=== PATIENT | male | born 1950 | race Caucasian/White ===

== ENCOUNTER 2019-03-26 08:55 | Day surgery (SDC) | payer MEDICARE, OTHER ==
--- NOTE | 2019-03-27 15:36 | OR ---
[facility] [address], [place] [address] Signed DATE OF OPERATION: 03/26/2019 SURGEON: Carrie Benjamin MD PREOPERATIVE DIAGNOSES: 1. Right thyroid mass. 2. Cystic solid lesion. POSTOPERATIVE DIAGNOSES: 1. Right thyroid mass. 2. Cystic solid lesion. PROCEDURES PERFORMED: 1. Ultrasound evaluation of thyroid. 2. Ultrasound-guided fine-needle aspiration biopsy of right thyroid lobe mass. ANESTHESIA: 1% lidocaine with epinephrine. INDICATION: This 69-year-old white man is a patient of Dr. Darwin Looney and has had issues of prostate cancer as well as renal cell carcinoma of the right kidney undergoing a partial nephrectomy. He is considered to have possible bony metastases, but this is not entirely certain. During the course of a PET scan, he was noted to have a right thyroid mass. He has no exposure of radiation therapy and no family history of thyroid cancer. The lesion was noted on CT scan and affirmed by PET scan to be approximately 2-point cm in size and clinically nonpalpable. I have recommended fine-needle aspiration biopsy by ultrasound guidance to better characterize the histology of the lesion. The risks of bleeding, infection, failure of diagnosis, misdiagnosis, and other unforeseen complications were reviewed in detail with him. He understands and wished to proceed. FINDINGS: Ultrasonographic evaluation of the thyroid showed a mixed cystic solid lesion of the right thyroid lobe in the lower aspect. The isthmus and left lobe were normal. Needle aspiration was undertaken with ultrasound guidance with certainty of the lesion having been interrogated. On the 3rd specimen, fluid was obtained as well consistent with thyroid cyst fluid. DESCRIPTION OF PROCEDURE: The patient was placed in a supine position on a stretcher in the Day Surgery area with Electronically Signed By: CARRIE BENJAMIN MD 03/27/19 1536 PATIENT NAME: YASIR GUILLEN OPERATIVE REPORT DATE OF : 52 REPORT #: [id number] PHYSICIAN: CARRIE BENJAMIN MD PCP: DARWIN LOONEY MD REPORT IS CONFIDENTIAL AND NOT TO BE RELEASED WITHOUT AUTHORIZATION [facility] [address], [place] [address] Signed the neck extended. Gel was applied to the anterior neck, and using a SonoSite ultrasound, interrogation of the neck structure was undertaken showing a relatively large 3 cm lesion of the right thyroid lobe with both mixed and solid components. Scanning across the isthmus showed it to be normal and the left lobe was normal in size and appearance. The neck was then prepared with a chlorhexidine solution and the area was draped sterilely. The ultrasound probe was placed in a sterile cover with gel within the cover itself. Re-evaluation of the thyroid was undertaken. 1% lidocaine was injected in the lateral aspect of the probe and in the central portion. Using a 22-gauge needle with 10 mL syringe and aspiration mode with a control syringe, the needle was guided to the right thyroid lobe lesion avoiding obviously the internal jugular vein and carotid artery, which were well visualized. Multiple passes were taken in the nodule. The resulting aspirate was offloaded into a sterile container and two additional similar such interrogations of the lesion in question were undertaken. The 3rd was in the midportion of the probe in AP direction, which obtained some fluid as well. Re-examination with the ultrasound showed no sign of hematoma, bleeding, or other abnormality. A Band-Aid was applied. He tolerated the procedure well. MD MARIANNA Novak/MODL /[id number] cc: Darwin Looney MD Copies: ~ Electronically Signed By: CARRIE BENJAMIN MD 03/27/19 1536 PATIENT NAME: YASIR GUILLEN OPERATIVE REPORT DATE OF : 52 REPORT #: [id number] PHYSICIAN: CARRIE BENJAMIN MD PCP: DARWIN LOONEY MD REPORT IS CONFIDENTIAL AND NOT TO BE RELEASED WITHOUT AUTHORIZATION
== END 2019-03-26 18:00 | disposition home or self-care (01) ==
LOC: DS 08:55 → OPS 08:55 → DS 09:00 → OPS 09:00
PROC: 0GBH3ZX Excision of Right Thyroid Gland Lobe, Percutaneous Approach, Diagnostic (ICD-10-PCS; principal; 2019-03-26)
DX: E04.1 Nontoxic single thyroid nodule (principal); E66.3 Overweight; E07.89 Other specified disorders of thyroid; C79.51 Secondary malignant neoplasm of bone; C79.00 Secondary malignant neoplasm of unspecified kidney and renal pelvis; Z85.46 Personal history of malignant neoplasm of prostate; Z85.528 Personal history of other malignant neoplasm of kidney; Z68.29 Body mass index [BMI] 29.0-29.9, adult
CPT/HCPCS: 88173; 88305

== ENCOUNTER 2020-10-31 07:21 | Day surgery (SDC) | payer BC, MEDICARE ==
[~2020-10-31] VITALS: Ht 170.2 cm; Wt 81.8 kg
--- NOTE | ~2020-10-31 | OR ---
[facility] [address], [place] [address] Draft DATE OF OPERATION: 10/31/2020 SURGEON: Carrie Benjamin MD PREOPERATIVE DIAGNOSIS: Colon screening. POSTOPERATIVE DIAGNOSIS: Multiple polyps (nine). PROCEDURE: Total colonoscopy to cecum with cold morcellation polypectomy x5 and hot snare polypectomy x4. ANESTHESIA: Intravenous sedation, fentanyl 100 mcg and Versed 8 mg. INDICATIONS: This 70-year-old white man is well known to me from the past. He is a patient of Dr. Almonte. He has had a partial nephrectomy for malignancy in the past and ongoing evaluation for recurrent nodule, which was proven to be negative on biopsy by Dr. Lema. The patient has an incisional hernia in the epigastric incision from prior Hill repair as well as the right flank hernia from recent additional biopsy of the right kidney. He underwent colonoscopy by me in 2008. At that time, he had a hyperplastic polyp. He is having no symptoms of bleeding, diarrhea, or constipation. He does have a fair amount of "gas" as well as tenesmus type sensation. He is admitted to undergo colonoscopy. He understands the risks of bleeding, infection, and perforation. FINDINGS: The prep was excellent. Complete colonoscopy was undertaken of the cecum without question. He had multiple polyps, nine in total. They were at 70 cm, 60 cm, 50 cm, 15 cm, two at 20 cm, one at 18 cm and another at 65 cm and another at 35 cm. All were excised completely. DESCRIPTION OF PROCEDURE: The patient was brought to the endoscopy suite and placed in lateral decubitus position given intravenous sedation to the point of slurred speech and nystagmus. Digital rectal examination was normal. PATIENT NAME: YASIR GUILLEN OPERATIVE REPORT DATE OF : 52 REPORT #: [id number] PHYSICIAN: CARRIE BENJAMIN MD PCP: KYLE ALMONTE MD REPORT IS CONFIDENTIAL AND NOT TO BE RELEASED WITHOUT AUTHORIZATION [facility] [address], [place] [address] Draft An Olympus video colonoscope was passed into the rectum and manipulated throughout the colon noting a relatively large pedunculated polyp in the sigmoid colon. Mindful that this would be easily defined upon withdrawal of scope. The scope was passed forward ultimately to the cecum. Ileocecal valve and appendiceal orifice were normal. The scope was withdrawn from that point. Careful inspection upon withdrawal of scope showed no sign of abnormality until approximately 70 cm from the anal verge at the splenic flexure, where a small polyp was noted, this was excised with cold morcellation technique. The scope was further withdrawn. Another polyp was noted at 65 cm, this excised with hot snare polypectomy technique. Another at 60 cm similarly excised. Further withdrawal of scope showed a polyp at 35 cm, which was excised with cold morcellation technique. Another at 18 cm similarly excised and the largest polyp at approximately 20 cm, which was excised with hot snare polypectomy technique. Another polyp at 15 cm excised with snare technique as well. In aggregate, five polyps were excised with cold morcellation technique and four with hot snare technique. All were retrieved for pathology, two required a basket to remove. Retroflexed view of the rectum was normal. The scope was removed, and the patient was taken to the recovery room in good condition. CONCLUDING DIAGNOSIS: Multiple polyps, all have been left-sided. PLAN: Recommend repeat colonoscopy in one year based on number of polyps. He will see us back in 4-6 weeks, and we will begin treatment planning for incisional hernia repairs. MD MARIANNA Novak/JUD /[id number] Copies: ~ PATIENT NAME: YASIR GUILLEN ASHU OPERATIVE REPORT DATE OF : 52 REPORT #: [id number] PHYSICIAN: CARRIE BENJAMIN MD PCP: KYLE ALMONTE MD REPORT IS CONFIDENTIAL AND NOT TO BE RELEASED WITHOUT AUTHORIZATION
--- NOTE | 2020-10-31 09:19 | NUR ---
10/31/20 0919 Kimberley Hammond 0918 PT ARRIVED TO PACU ON 2L VIA NC, PT DENIES PAIN AND IS REORIENTED TO PACU. VSS. RESP EVEN AND UNLABORED AND PT EASILY FALLS BACK TO SLEEP.
--- NOTE | 2020-11-01 11:17 | PATH ---
[facility] [address] [place], [place] [address] Signed SPECIMEN(S): A COLON POLYP AT 70 CM SPECIMEN(S): B COLON POLYP AT 60 CM SPECIMEN(S): C COLON POLYP AT 50 CM SPECIMEN(S): D COLON POLYP AT 15 CM SPECIMEN(S): E COLON POLYP AT 20 CM SPECIMEN(S): F COLON POLYP AT 18 CM SPECIMEN(S): G COLON POLYP 2 AT 20CM SPECIMEN(S): H COLON POLYP AT 65 CM SPECIMEN(S): I COLON POLYP AT 35 CM SPECIMEN SOURCE: A. COLON POLYP AT 70 CM B. COLON POLYP AT 60 CM C. COLON POLYP AT 50 CM D. COLON POLYP AT 15 CM E. COLON POLYP AT 20 CM F. COLON POLYP AT 18 CM G. COLON POLYP 2 AT 20CM H. COLON POLYP AT 65 CM I. COLON POLYP AT 35 CM CLINICAL HISTORY: Colonoscopy. Surveillance: History of hyperplastic polyp in 2008. Postop: Multiple colon polyps. MICROSCOPIC DESCRIPTION: Histologic sections of all submitted blocks are examined by light microscopy. These findings, together with the gross examination, support the pathologic diagnosis. FINAL PATHOLOGIC DIAGNOSIS: A. Colon, polyp at 70 cm, polypectomy: - Fragments of tubular adenoma. - Negative for high-grade dysplasia or malignancy. B. Colon, polyp at 60 cm, polypectomy: - Tubular adenoma. - Negative for high-grade dysplasia or malignancy. C. Colon, polyp at 50 cm, polypectomy: - Tubular adenoma. - Negative for high-grade dysplasia or malignancy. D. Colon, polyp at 15 cm, polypectomy: - Fragments of tubular adenoma. PATIENT NAME: YASIR GUILLEN PATHOLOGY DATE OF : 52 REPORT #: [id number] PHYSICIAN: JAYE COVINGTON PCP: KYLE ALMONTE MD REPORT IS CONFIDENTIAL AND NOT TO BE RELEASED WITHOUT AUTHORIZATION [facility] [address] [place], [place] [address] Signed - Negative for high-grade dysplasia or malignancy. E. Colon, polyp at 20 cm, polypectomy: - Fragments of tubular adenoma. - Negative for high-grade dysplasia or malignancy. F. Colon, polyp at 18 cm, polypectomy: - Tubular adenoma. - Negative for high-grade dysplasia or malignancy. G. Colon, polyp at 20 #2, polypectomy: - Tubular adenoma. - Negative for high-grade dysplasia or malignancy. H. Colon, polyp at 65 cm, polypectomy: - Tubular adenoma. - Negative for high-grade dysplasia or malignancy. I. Colon, polyp at 35 cm, polypectomy: - Tubular adenoma. - Negative for high-grade dysplasia or malignancy. NAL:cml:C2NR GROSS DESCRIPTION: Nine specimens are received in nine containers, labeled "SS." A. The specimen, labeled "SS, colon polyp at 70 cm," is received in formalin and consists of two ureña soft tissue fragments that measure 0.1-0.2 cm in greatest dimension. The specimen is entirely submitted in cassette (A1). B. The specimen, labeled "SS, colon polyp at 60 cm," is received in formalin and consists of one ureña soft tissue fragment that measures 0.2 cm in greatest dimension. The specimen is entirely submitted in cassette (B1). C. The specimen, labeled "SS, colon polyp at 50 cm," is received in formalin and consists of one ureña soft tissue fragment that measures 0.9 cm in greatest dimension. The specimen is serially sectioned and entirely submitted in cassette (C1). D. The specimen, labeled "SS, colon polyp at 15 cm," is received in formalin and consists of four ureña soft tissue fragments that measure 0.1-0.6 cm in greatest dimension. The specimen is entirely submitted in cassette (D1). E. The specimen, labeled "SS, colon polyp at 20 cm," is received in formalin and consists of two ureña soft tissue fragments that measure 0.3 cm in greatest dimension. The specimen is entirely submitted in cassette (E1). PATIENT NAME: YASIR GUILLEN PATHOLOGY DATE OF : 52 REPORT #: [id number] PHYSICIAN: JAYE COVINGTON PCP: KYLE ALMONTE MD REPORT IS CONFIDENTIAL AND NOT TO BE RELEASED WITHOUT AUTHORIZATION [facility] [address] [place] [id number] Signed F. The specimen, labeled "SS, colon polyp at 18 cm," is received in formalin and consists of two ureña soft tissue fragments that measure 0.1-0.2 cm in greatest dimension. The specimen is entirely submitted in cassette (F1). G. The specimen, labeled "SS, colon polyp at 20 cm #2," is received in formalin and consists of one ureña soft tissue fragment that measure 0.8 cm in greatest dimension. The specimen is trisected and entirely submitted in cassette (G1). H. The specimen, labeled "SS, colon polyp at 65 cm," is received in formalin and consists of one ureña soft tissue fragment that measures 0.2 cm in greatest dimension. The specimen is entirely submitted in cassette (H1). I. The specimen, labeled "SS, colon polyp at 35 cm," is received in formalin and consists of two ureña soft tissue fragments that measure 0.1-0.2 cm in greatest dimension. The specimen is entirely submitted in cassette (I1). JS (under the direct supervision of a pathologist) The Gross Description was prepared using a voice recognition system. The report was reviewed for accuracy; however, sound-alike word errors, addition and/or deletions may occur. If there is any question about this report, please contact Client Services. PERFORMING LABORATORY: The technical component [place] [address] (Superintendent Storage Area: Hanna Spence MD; CLIA# [id number]). Professional interpretation was performed by [place] [id number] (CLIA# [id number]). Diagnostician: Yolanda Ortiz MD Pathologist Electronically Signed 11/01/2020 Copies: ~ PATIENT NAME: YASIR GUILLEN PATHOLOGY DATE OF : 52 REPORT #: [id number] PHYSICIAN: JAYE PATHOLOGY PCP: KYLE ALMONTE MD REPORT IS CONFIDENTIAL AND NOT TO BE RELEASED WITHOUT AUTHORIZATION
== END 2020-10-31 10:10 | disposition home or self-care (01) ==
LOC: OPS 07:21 → DS 07:21 → OPS 08:30
PROVIDERS: ATTEND Surgery
PROC: 0DBG8ZX Excision of Left Large Intestine, Via Natural or Artificial Opening Endoscopic, Diagnostic (ICD-10-PCS; principal; 2020-10-31 08:30)
DX: Z12.11 Encounter for screening for malignant neoplasm of colon (principal); D12.4 Benign neoplasm of descending colon; K43.2 Incisional hernia without obstruction or gangrene; N40.1 Benign prostatic hyperplasia with lower urinary tract symptoms; N13.8 Other obstructive and reflux uropathy; Z79.1 Long term (current) use of non-steroidal anti-inflammatories (NSAID); Z79.899 Other long term (current) drug therapy; Z86.010 Personal history of colon polyps; Z85.46 Personal history of malignant neoplasm of prostate; Z85.528 Personal history of other malignant neoplasm of kidney
CPT/HCPCS: 99153; G0500; J0690; J2250; J3010; J7121

== ENCOUNTER 2020-12-20 06:04 | Day surgery (SDC) | payer BC, MEDICARE ==
[~2020-12-20] VITALS: Ht 170.2 cm; Wt 81.8 kg
--- NOTE | ~2020-12-20 | OR ---
[facility] [address], [place] [address] Draft DATE OF OPERATION: 12/20/2020 SURGEON: Carrie Benjamin MD PREOPERATIVE DIAGNOSIS: Right subcostal/lateral incisional hernia. POSTOPERATIVE DIAGNOSIS: Right subcostal/lateral incisional hernia. PROCEDURES: 1. Repair of abdominal wall incisional hernia. 2. Implantation of Prolene mesh underlay technique. ANESTHESIA: General endotracheal, Cameron Guillermina, CHILD CARE GROUP LEADER and local 30 mL of 0.25% Marcaine with epinephrine. INDICATIONS: This 70-year-old white man is well known to me from the past. 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 He has had partial nephrectomy for malignant disease and re-exploration with biopsy a few months ago and found to have no evidence of recurrent malignancy, but has developed an incisional hernia in the right subcostal area. Though unusual due to the multilayer area of the abdominal wall, clearly he has a very large hernia. The hernia in the midline is anticipated for repair, but may well require a components release approach and at this time, I have recommended repair of the incisional hernia in the right subcostal area primarily. This will include implantation of Prolene mesh. The risks of bleeding, infection, and recurrence were reviewed in detail. He understands and wished to proceed. FINDINGS: A rather sizable defect at least 6-7 cm was noted. There was no sign of incarcerated viscus. Entry into the peritoneal cavity at one point showed no sign of ascites, carcinomatosis, or other problem. The repair was afforded by implantation of Prolene mesh in the properitoneal space with reapproximation of the multi-layered muscle layers over that with Prolene suture and Prolene pledgets. DESCRIPTION OF PROCEDURE: The patient was brought to the operating room, given a general endotracheal anesthetic. PATIENT NAME: YASIR GUILLEN OPERATIVE REPORT DATE OF : 52 REPORT #: [id number] PHYSICIAN: CARRIE BENJAMIN MD PCP: KYLE ALMONTE MD REPORT IS CONFIDENTIAL AND NOT TO BE RELEASED WITHOUT AUTHORIZATION [facility] [address], [place] [address] Draft Preoperative antibiotic Ancef was given. Sequential compression device stockings used and heparin subcutaneously administered. The abdomen was prepared with a chlorhexidine solution and draped sterilely. The table was turned to the left side down. The palpable abnormality, which was marked preoperatively and designated by incision from the past was evaluated. The fascial edges were approximately 6-8 cm in size. An incision was made in the previous incision. Dissection carried through the subcutaneous tissue. The defect was through all three muscle layers strangely. There was no sign of residual suture. The hernia sac was dissected free from the muscle layers more fully including the external oblique, internal oblique, and transversus layers. Ultimately, the hernia sac was well identified and the muscular layers additionally well identified and reasonably ramires because the hernia remains uncertain. The entry into the peritoneal cavity briefly did show normal omentum. No sign of ascites or other problem. The herniated sac defect was reapproximated with 2-0 Vicryl suture. An area in the properitoneal space was developed circumferentially to allow for implantation of Prolene mesh. A 6-inch Prolene mesh was cut to a circular configuration and secured in an underlay technique with interrupted #0 Prolene sutures with Prolene pledgets. The muscular layers were reapproximated over that with interrupted #0 Prolene with Prolene pledgets in a horizontal mattress configuration. Photographs were taken throughout. A 30 mL of 0.25% Marcaine with epinephrine injected locally. Armando's layer was reapproximated with interrupted 2-0 Vicryl and skin closed with running subcuticular 3-0 Vicryl. Steri-Strips were applied as was a silver sponge dressing. The patient tolerated the procedure well. Blood loss was minimal, less than 20 mL. Sponge, needle, and instrument counts reported as correct x3. MD MARIANNA Novak/CELESTINOL /[id number] Copies: ~ PATIENT NAME: YASIR GUILLEN OPERATIVE REPORT DATE OF : 52 REPORT #: [id number] PHYSICIAN: CARRIE BENJAMIN MD PCP: KYLE ALMONTE MD REPORT IS CONFIDENTIAL AND NOT TO BE RELEASED WITHOUT AUTHORIZATION
--- NOTE | 2020-12-20 09:35 | NUR ---
12/20/20 0935 Amanda Desai 0929 PATIENT UNRESPONSIVE TO PAIN. ORAL AIRWAY IN PLACE. RESP EVEN AND UNLABORED, MASK AT 6 LITERS.
[2020-12-20] MEDS ORDERED: IBUPROFEN600 MG PO (09:52)
[2020-12-20] MEDS ORDERED: ACETAMINOPHEN500 MG PO (09:53)
[2020-12-20] MEDS ORDERED: OXYCODON-ACETA1 EAC2 PO (09:53)
--- NOTE | 2020-12-20 10:07 | NUR ---
PT ARRIVES TO DS RM 5 FROM PACU AWAKE AND ALERT. PT DENIES ANY NAUSEA OR PAIN. DC CRITERIA EXPLAINED TO PT. PT PROVIDED ICED WATER. CALL LIGHT WITHIN REACH.
[2020-12-20] MEDS ORDERED: PERCOCET 7.5-31 EACH PO (10:26)
--- NOTE | 2020-12-20 11:20 | NUR ---
PT SLEEPING ON ENTRANCE TO PT ROOM, EASILY AROUSES WITH VERBAL STIMULI. PT DENIES ANY PAIN OR NAUSEA. PT PROVIDED PEPSI PER REQUEST, DENIES ANYTHING TO EAT AT THIS TIME. CALL LIGHT WITHIN REACH, ENCOURAGED TO USE FOR ANY NEEDS.
--- NOTE | 2020-12-20 12:15 | NUR ---
PATIENT IS IN BED, NO DESIRE TO VOID AT THIS TIME. WATER AT BEDSIDE TABLE, CALL LIGHT IN REACH. NO FURTHER ASSISTANCE AT THIS TIME. FOOD ORDER WILL BE PLACED.
--- NOTE | 2020-12-20 13:15 | NUR ---
PT TOLERATES 100% OF LUNCH WITH NO COMPLAINTS OF NAUSEA. PT WOULD LIKE TO GET UP AND USE BATHROOM, SITS AT SIDE OF BED PRIOR TO STANDING. ABD BINDER PLACED OVER GOWN. PT HAS STEADY GAIT TO BATHROOM, DENIES ANY DIZZINESS OR NAUSEA. PT VOIDS APPROX 600 MLS YELLOW URINE WITH NO PROBLEMS. PT BACK TO DS RM 5 TO GET DRESSED. THIS RN PHONES SPOUSE FOR SAFE RIDE HOME. 1320: DC INSTRUCTIONS PRESENTED TO PT, ALL QUESTIONS ADDRESSED. PT PROVIDED PAIN PRESCRIPTION TO DROP OFF AT PHARMACY. ABD BINDER PLACED OVER PERSONAL CLOTHING AND PT DC VIA WC TO SPOUSE WAITING ON MAIN HOPSITAL ENTRANCE TO HOME.
== END 2020-12-20 13:35 | disposition home or self-care (01) ==
LOC: DS 06:04
PROVIDERS: ATTEND Surgery
PROC: 0WUF0JZ Supplement Abdominal Wall with Synthetic Substitute, Open Approach (ICD-10-PCS; principal; 2020-12-20 06:45)
DX: K43.2 Incisional hernia without obstruction or gangrene (principal); N40.1 Benign prostatic hyperplasia with lower urinary tract symptoms; N13.8 Other obstructive and reflux uropathy; K44.9 Diaphragmatic hernia without obstruction or gangrene; Z85.46 Personal history of malignant neoplasm of prostate; Z85.53 Personal history of malignant neoplasm of renal pelvis; Z85.830 Personal history of malignant neoplasm of bone; Z86.010 Personal history of colon polyps
CPT/HCPCS: 00830; C1781; J0690; J1100; J1644; J1885; J2001; J2405; J2704; J3010; J7121

== ENCOUNTER 2021-02-10 17:07 | Observation (INO) | payer BC, MEDICARE ==
[~2021-02-10] VITALS: Ht 170.2 cm; Wt 57.6 kg
[~2021-02-10 17:07] MED LIST: ACETAMINOPHEN500 MG PO; IBUPROFEN600 MG PO; OXYCODON-ACETA1 EAC2 PO; PERCOCET 7.5-31 EACH PO
--- NOTE | 2021-02-10 21:40 | NUR ---
PT ARRIVED AT 2110 VIA WHEELCHAIR AND MOVED OVER TO THE BED INDEPENDENTLY. VS TAKEN AND ENTERED, RR ARE EVEN AND NONLABORED. PT DENIES ANY DEFICITS. COMPLETED ADMISSION HISTORY WITH PT. HE IS ORIENTED TO THE ROOM AND CALL LIGHT. PT REQUESTED FOOD AND DENIES FURTHER NEEDS. WILL BRING SANDSwapBeatsICH BOX. FRESH WATER AT BEDSIDE. CALL LIGTH IS CLOSE.
--- NOTE | 2021-02-10 22:00 | NUR ---
ASSESSMENT COMPLETE. PT ALERT AND ORIENTED, COOPERATIVE, APPEARS TO BE GOOD HISTORIAN OF EVENT. TELEMETRY PER ORDER APPLIED. IVF INFUSING PER ORDER. CMS INTACT. NO S/S OF CVA. VSS. PT REQUESTS SANDWICH BOX. PT AGREES TO USE CALL LIGHT WHEN HE NEEDS TO USE RESTROOM. CALL LIGHT WITHIN REACH, PT IN VIEW OF NURSES STATION FOR SAFETY.
--- NOTE | 2021-02-11 00:19 | NUR ---
CHECKED ON PT. PT LAYING RT LATERAL APPEARS TO BE SLEEPING WITH EYES CLOSED, EVEN UNLABORED BREATHING. PT AWAKES THIS NURSE ENTERS ROOM. DENIES NEEDS AT THIS TIME. CALL LIGHT AND BEDSIDE TABLE WITHIN REACH.
--- NOTE | 2021-02-11 02:18 | NUR ---
IN ROOM FOR 0200 VITALS. PT AWAKES EASILY NURSING STAFF ENTER THE ROOM. VSS. PT REPORTS NO URGE TO VOID AT THIS TIME. CALL LIGHT WITHIN REACH. WATER REFRESHED. NO FURTHER NEEDS AT THIS TIME.
--- NOTE | 2021-02-11 05:38 | NUR ---
IN TO GET VITALS, URINAL EMPTIED THIS MORNING, NO FURTHER NEEDS
--- NOTE | 2021-02-11 05:39 | NUR ---
IN ROOM FOR MORNING VITALS AND ASSESSMENT. PT IS ALERT AND AWAKE. NO S/S OF CVA. EVEN SYMMETRY ON FACE, ARM AND LEG STRENGTH. TELE HAS BEEN SR ALL NIGHT. IVF INFUSING PER ORDER. URINE OUTPUT QS. VSS. FRESH WATER PROVIDED. NO FURTHER NEEDS AT THIS TIME. CALL LIGHT WITHIN REACH.
--- NOTE | 2021-02-11 07:24 | EKG ---
[facility] [address] [place] [address] Signed Normal sinus rhythm Normal ECG When compared with ECG of 14-DEC-2020 09:44, GA interval has decreased Confirmed by ELIA LOZADA MD ([id number]) on 02/11/2021 7:23:49 AM Electronically Signed By: ELIA LOZDAA MD 02/11/21 0724 PATIENT NAME: YRNSHERRILLRadhaYASIR Electrocardiogram DATE OF : 52 PHYSICIAN: ELIA LOZADA MD REPORT #: [id number] REPORT IS CONFIDENTIAL AND NOT TO BE RELEASED WITHOUT AUTHORIZATION
--- NOTE | 2021-02-11 07:37 | NUR ---
SHIFT REPORT FROM DOUG MARY INCLUDED: pt brought in for overnight observations after drinking too much with his boss and losing his ability to balance while standing and walking. pts neuro assessments have been benign through the night. pts showing no s/sx of neuro deficits. pt VSS and pt anxious to go home ching. pt currently alert and oriented x3, pleasant and cooperative with cares. pt ordering breakfast on his own at this time. pt denies pain and nausea and dizziness.
--- NOTE | 2021-02-11 08:00 | NUR ---
ASSESSMENT + MED PASS pt assessment completed, pts NIHSS assessment was completely benign. pt alert and oriented x4, pleasant and cooperative with cares. pt CIWA score of 1. pt able to take med without difficulty. pt denies further needs at this time. table and call light within reach.
[2021-02-11] MEDS ORDERED: ADULT LOW DOSE81 MG PO (08:12)
== END 2021-02-11 09:30 | disposition home or self-care (01) ==
LOC: ED 17:07 → MS 17:10
PROVIDERS: ADMIT Internal Medicine; ATTEND Internal Medicine
DX: R42 Dizziness and giddiness (principal); R47.81 Slurred speech; R26.9 Unspecified abnormalities of gait and mobility; E04.1 Nontoxic single thyroid nodule; K63.5 Polyp of colon; Z85.528 Personal history of other malignant neoplasm of kidney; Z85.46 Personal history of malignant neoplasm of prostate; Z90.5 Acquired absence of kidney; Z72.89 Other problems related to lifestyle
CPT/HCPCS: 70450; 70496; 70498; 71045; 93005; 93010; C9803; Q9967

== ENCOUNTER 2022-03-15 09:52 | Day surgery (SDC) | payer BC, MEDICARE ==
[~2022-03-15] VITALS: Ht 167.6 cm; Wt 86.4 kg
--- NOTE | ~2022-03-15 | OR ---
[facility] [address] [place], [place] [address] Draft DATE OF OPERATION: 03/15/2022 SURGEON: Carrie Benjamin MD PREOPERATIVE DIAGNOSES: 1. History of polyps. 2. Recurrent renal cell carcinoma of the right kidney with direct extension to right hepatic lobe of the liver. POSTOPERATIVE DIAGNOSES: Small polyp of sigmoid (excised), scattered diverticula of sigmoid. PROCEDURE: Total colonoscopy to cecum with cold snare polypectomy x1. ANESTHESIA: Intravenous sedation; fentanyl 100 mcg and Versed 6 mg. INDICATION: This 72-year-old white man is well known to me from the past. He is a patient of Dr. Almonte. He is anticipating right completion nephrectomy (prior partial nephrectomy in the past) for recurrent renal cell carcinoma, which apparently has penetrated to the right lobe of the liver. This will be performed at [facility] within the next week. Colonoscopy is anticipated on the basis of fecal urgency and prior history of polyps. He understands the risk of colonoscopy including but not limited to bleeding, infection, perforation, and so on. FINDINGS: The prep was excellent. Complete colonoscopy was undertaken to the cecum without question. He had a few scattered diverticula of the sigmoid. A small sessile adenomatous polyp was noted in the sigmoid, which was excised with cold snare polypectomy technique without problem. The remaining colon was normal. DESCRIPTION OF PROCEDURE: The patient was brought to the endoscopy suite and placed in lateral decubitus position, given intravenous sedation to the point of slurred speech and nystagmus with full cardiopulmonary monitoring. Digital rectal examination was normal. An Olympus video colonoscope was passed in the rectum and manipulated throughout the colon noting a small polyp in the sigmoid. As it was positioned optimally for excision, PATIENT NAME: YASIR GUILLEN OPERATIVE REPORT DATE OF : 52 REPORT #: [id number] PHYSICIAN: CARRIE BENJAMIN MD PCP: KYLE ALMONTE MD REPORT IS CONFIDENTIAL AND NOT TO BE RELEASED WITHOUT AUTHORIZATION [facility] [address] [place], [place] [address] Draft cold snare polypectomy excision was undertaken. Specimen passed for pathology. The scope was advanced beyond this, noting a few scattered diverticula. The scope was ultimately advanced to the cecum, which was easily intubated. The ileocecal valve and appendiceal orifice were normal. The scope was withdrawn from that point and examination throughout showed no sign of abnormality specifically no additional polyps. Retroflexed view of the rectum was normal as well. The scope was removed and the patient was taken to the recovery room in good condition. CONCLUDING DIAGNOSIS: Small polyp of sigmoid (excised), diverticulosis. PLAN: He will proceed with operative intervention at [facility] in the near future. We would recommend repeat colonoscopy in 5 years, sooner if clinically indicated. MD MARIANNA Novak/JUD /[id number] cc: Dr. Almonte Copies: ~ PATIENT NAME: YASIR GUILLEN OPERATIVE REPORT DATE OF : 52 REPORT #: [id number] PHYSICIAN: CARRIE BENJAMIN MD PCP: KYLE ALMONTE MD REPORT IS CONFIDENTIAL AND NOT TO BE RELEASED WITHOUT AUTHORIZATION
[~2022-03-15 09:52] MED LIST changes: +ADULT LOW DOSE81 MG PO; +LISINOPRIL10 MG PO
--- NOTE | 2022-03-15 11:08 | NUR ---
03/15/22 1108 Lucero Hernandez 1100- PT ARRIVES TO PACU WITH HIS EYES OPEN. PT REPORTS NO PAIN OR NAUSEA. FALLS TO SLEEP WHEN NOT BEING TALKED TO. RESP EVEN AND UNLABORED. OXYGEN SAT HIGH 90'S TO 100% ON 3L VIA NC.
--- NOTE | 2022-03-18 09:01 | PATH ---
[facility] [address] [facility] [place] [address] Signed SPECIMEN(S): A SIGMOID POLYP SPECIMEN SOURCE: A. SIGMOID POLYP CLINICAL HISTORY: Colonoscopy. Recurrent right renal CA with mets to liver. Post: Polyp x 1, diverticulosis. FINAL PATHOLOGIC DIAGNOSIS: Colon, sigmoid, polypectomy: - Tubular adenoma. - There is no evidence of high-grade dysplasia or malignancy. TWK:tonie:C2NR MICROSCOPIC EXAMINATION: Histologic sections of all submitted blocks are examined by light microscopy. These findings, together with the gross examination, support the pathologic diagnosis. GROSS DESCRIPTION: The specimen, labeled "SS, 1," and designated on the requisition "sigmoid polyp," is received in formalin and consists of one ureña soft tissue fragment that measures 0.3 cm in greatest dimension. The specimen is entirely submitted in cassette (A1). AT (under the direct supervision of a pathologist) The Gross Description was prepared using a voice recognition system. The report was reviewed for accuracy; however, sound-alike word errors, addition and/or deletions may occur. If there is any question about this report, please contact Client Services. PERFORMING LABORATORY: The technical component was performed by [facility], [address] [place] [id number] (CLIA# [id number]). The professional interpretation was performed by [facility], [facility], [address] [place] [address] (CLIA#: [id number]). Diagnostician: Anmol Martinez MD Pathologist Electronically Signed 03/18/2022 PATIENT NAME: YASIR GUILLEN PATHOLOGY DATE OF : 52 REPORT #: [id number] PHYSICIAN: JAYE PATHOLOGY PCP: KYLE ALMONTE MD REPORT IS CONFIDENTIAL AND NOT TO BE RELEASED WITHOUT AUTHORIZATION [address] [address] Signed Copies: ~ PATIENT NAME: YASIR GUILLEN PATHOLOGY DATE OF : 52 REPORT #: [id number] PHYSICIAN: JAYE PATHOLOGY PCP: KYLE ALMONTE MD REPORT IS CONFIDENTIAL AND NOT TO BE RELEASED WITHOUT AUTHORIZATION
== END 2022-03-15 11:59 | disposition home or self-care (01) ==
LOC: OPS 09:52 → DS 09:57 → OPS 11:00 → DS 12:00 → OPS 12:00
PROVIDERS: ATTEND Surgery
PROC: 0DBN8ZX Excision of Sigmoid Colon, Via Natural or Artificial Opening Endoscopic, Diagnostic (ICD-10-PCS; principal; 2022-03-15 11:00)
DX: D12.5 Benign neoplasm of sigmoid colon (principal); C64.1 Malignant neoplasm of right kidney, except renal pelvis; R15.2 Fecal urgency; K43.2 Incisional hernia without obstruction or gangrene; C78.7 Secondary malignant neoplasm of liver and intrahepatic bile duct; Z90.5 Acquired absence of kidney; K57.30 Diverticulosis of large intestine without perforation or abscess without bleeding
CPT/HCPCS: 99153; G0500; J0690; J2250; J3010; J7121